=== PATIENT | male | born 1980 | race American Indian/Alaskan Native ===

== ENCOUNTER 2022-05-20 06:54 | Day surgery (SDC) | payer OTHER ==
[~2022-05-20 06:54] MED LIST: LACTATED RINGERS 1,000 ML ONE; ceFAZolin/STERILE WATER 2 GM/20 ML SYRINGE IV NR
[2022-05-20] MEDS ORDERED: LIDOCAINE (2%) 20 MG/1 ML VIAL 20 ML MDV INFILTRATI ONE ×2 (07:20→09:06)
[2022-05-20] MEDS ORDERED: BUPIVACAINE/PF (0.5%) 5 MG/1 ML 30 ML VIAL INFILTRATI ONE ×2 (07:20→09:06)
[2022-05-20] MEDS ORDERED: HYDROmorphone 1 MG/1 ML INJ ONE (07:42)
[2022-05-20] MEDS ORDERED: propofoL 200 MG/20 ML VIAL IV ONE (07:42)
[2022-05-20] MEDS ORDERED: LIDOCAINE MPF (2%) 20 MG/1 ML VIAL 5 ML ONE (07:47)
[2022-05-20] MEDS ORDERED: ROCURONIUM 50 MG/5 ML INJ IV ONE (07:47)
--- NOTE | 2022-05-20 07:53 | Anesthesia Consultation ---
Anesthesia Consult and Med Hx Date of service: 05/20/22 - Airway Anesthetic Teeth Evaluation: Poor (broken tooth #27), Partials (upper front) ROM Head & Neck: Adequate Mental/Hyoid Distance: Adequate Mallampati Class: Class II Intubation Access Assessment: Probably Good - Pre-Operative Health Status ASA Pre-Surgery Classification: ASA2 Proposed Anesthetic Plan: General - Pulmonary Hx Smoking: Yes (1 pack/day, stopped 9 days ago) - Central Nervous System Hx Psychiatric Problems: No - Hematic Hx Anemia: Yes ("slight") - Other Systems Hx Alcohol Use: No Hx Substance Use: Yes (Marijuana occas) Hx Cancer: No
--- NOTE | 2022-05-20 07:53 | Anesthesia Day of Surgery ---
Anesthesia Day of Surgery - Day of Surgery Patient Examined: Yes Patient H&P Reviewed: Yes Patient is NPO: Yes
[2022-05-20] MEDS ORDERED: FAMOTIDINE 20 MG/2 ML INJ IV NR (08:00)
[2022-05-20] MEDS ORDERED: LACTATED RINGERS 1,000 ML IV SCH (08:00)
[2022-05-20] MEDS ORDERED: MIDAZOLAM 2 MG/2 ML INJ IV NR (08:00)
[2022-05-20] MEDS ORDERED: SODIUM CHLORIDE 0.9% IRR 1,500 ML BOTTLE IR ONE (09:06)
[2022-05-20] MEDS ORDERED: ONDANSETRON 4 MG/2 ML INJ ONE (10:41)
[2022-05-20] MEDS ORDERED: GLYCOPYRROLATE 0.4 MG/2 ML INJ ONE (10:41)
[2022-05-20] MEDS ORDERED: NEOSTIGMINE 10MG/10 ML INJ MDV ONE (10:41)
--- NOTE | 2022-05-20 10:58 | Short Stay Summary ---
Short Stay Documentation Date of service: 05/20/22 - History Principal diagnosis: left inguinal hernia H&P: obtained from office - Allergies and Medications Current Medications: Allergies morphine Allergy (Verified 05/14/22 18:07) Hives shellfish derived Allergy (Verified 05/14/22 18:07) Hives Home Medications Medication Instructions Recorded Confirmed Last Taken Type No Known Home Medications [No 05/14/22 05/14/22 Unknown History Reported Home Medications] Active Medications Cefazolin Sodium (Cefazolin/Sterile Water 2 Gm/20 Ml Syringe) 2 gm IV PREOP NR Stop: 05/20/22 23:59 Famotidine (Famotidine 20 Mg/2 Ml Inj) 20 mg IV PREOP NR Stop: 05/20/22 12:00 Lactated Ringer's (Lactated Ringers) 1,000 mls @ 100 mls/hr IV DIRECT [place] Stop: 05/20/22 23:00 Midazolam HCl (Midazolam 2 Mg/2 Ml Inj) 2 mg IV PREOP NR Stop: 05/20/22 23:59 - Brief post op/procedure progress note Date of procedure: 05/20/22 Pre-op diagnosis: left inguinal hernia Post-op diagnosis: same Procedure: robotic assisted left inguinal hernia repair with mesh Anesthesia: GETA, local Findings: Indirect left inguinal hernia with moderate sized redundant sac Surgeon: TOM LOPEZ (Assist: Cm Martin CSA) Estimated blood loss: minimal Pathology: none Condition: stable - Hospital course Hospital course: Pt observed in PACU and discharged to home in stable condition when criteria met - Disposition Condition at discharge: Good Disposition: 01 HOME / SELF CARE / HOMELESS Short Stay Discharge Plan Activity: other (no heavy lifitng x 6 weeks) Diet: regular Wound: open to air Additional Instructions: SEE PRINTED INSTRUCTIONS Prescriptions: Gabapentin 300 mg PO BID 3 Days #6 cap Ibuprofen [Motrin] 800 mg PO Q8HR PRN #30 tablet PRN Reason: Pain, Moderate (4-6) HYDROcodone/APAP 5-325 [Dighton 5/325] 1 each PO Q6HR PRN #15 tablet PRN Reason: Pain , Severe (7-10)
[2022-05-20 15:59] VITALS: BP 122/86
--- NOTE | 2022-05-20 16:11 | Post Anesthesia Evaluation ---
- Post Anesthesia Evaluation Patient Participated: Yes Airway Patent: Yes Stable Respiratory Function: Yes Nausea/Vomiting: No Temp > 96.8F: Yes Pain Manageable: Yes Adequeate Hydration: Yes Anesthesia Complications: No Block Receding Appropriately: Not Applicable Patient on Ventilator: No
--- NOTE | 2022-05-20 17:02 | Operative Report ---
Operative Report Operative Report: Date of procedure: 05/20/22 Pre-op diagnosis: left inguinal hernia Post-op diagnosis: same Procedure: robotic assisted left inguinal hernia repair with mesh Anesthesia: GETA, local Findings: Indirect left inguinal hernia with moderate sized redundant sac Surgeon: TOM LOPEZ (Assist: Cm Martin CSA) Estimated blood loss: minimal Pathology: none Condition: stable Hospital course: Pt observed in PACU and discharged to home in stable condition when criteria met Condition at discharge: Good Disposition: 01 HOME / SELF CARE / HOMELESS HPI and indication: Patient is a 41-year-old male who was referred to the surgery clinic for a bulge in the left groin. He was found to have a left inguinal hernia on physical exam. It was recommended that the hernia be repaired. I discussed all risk, benefits, alternatives to repair with the patient and questions were answered. I explained that if the hernia was found on the right side at the same time, this would be fixed as well. The patient was agreeable. Consent obtained for robotic assisted left inguinal hernia repair with mesh, possible right, possible open. Procedure in detail: Patient was identified in the preoperative area, take back to operating room placed on operative table in supine position. After anesthesia was induced both arms were tucked and all bony prominences padded a ppropriately. A Vora catheter was sterilely placed by the circulating nurse. The abdomen and b/l groins were then prepped and draped in usual sterile fashion and a timeout performed. Local anesthetic was infiltrated to skin at the intended incision sites. A supraumbilical incision was made through which a Veress needle was inserted. Veress needle positioning was confirmed using saline drop test and the abdomen insufflated to 15 mmHg. Once the abdomen was insufflated, the Veress needle was removed and a 5 mm Optiview trocar was placed as incision. The abdomen is inspected there was no underlying injury to any of the abdominal structures. The thin fat overlying the transverse color had some insufflation air beneath it but no injury to colon was seen after meticulous inspection. Patient was placed in Trendelenburg and the pelvis examined. There was a left inguinal hernia and no obvious hernia on the right (prior repair was intact). At this point, an 8 mm right upper quadrant and left upper quadrant robotic trocars were then placed under direct visualization. The 5 mm supraumbilical trocar was removed and replaced with a 8mm robotic trocar under direct visualization. A Ray-Rob was placed into the abdomen. The robot was then docked. A forced bipolar was placed into arm #1 and a monopolar scissor in arm #3. The surgeon was then transferred to the console. First, I created a left sided preperitoneal flap. The peritoneum was scored approximately 5 to 6 cm from the hernia defect. The peritoneum was then incised from the midline to the ASIS. The preperitoneal flap was then developed in an avascular plane. I first defined the medial margin by dissecting to the pubic tubercle. The pubic tubercle was cleared of overlying fatty tissue using blunt dissection. I then created the lateral margin in a similar fashion. Great care was taken to avoid injury to any nerves. There was an indirect inguinal hernia and the hernia sac was gently reduced using blunt dissection and transecting cremasteric fibers with electrocautery. During the dissection, the cord structures were identified and protected. The cord structures and vas deferens were visualized throughout the entire dissection. Once the hernia sac was completely reduced, the peritoneal flap was checked for hemostasis. Any additional cremasteric fibers that were were tenting up the peritoneum were div ided. Hemostasis was carefully ensured. The hernia was repaired using a LEFT large 3D max mesh. The mesh along with suture material was placed into the abdomen by the special events assistant. The mesh was positioned into the preperitoneal flap in the usual fashion. The medial portion of the mesh was sutured to Caleb's ligament using an interrupted 2-0 Vicryl stitch. The lateral aspect of the mesh was sutured to the anterior lateral abdominal wall using a 2-0 Vicryl interrupted stitch. The mesh was seen to lay flat in the pocket with excellent coverage. An 18 F angiocath was inserted through the left lower abdominal wall into the pocket but the special events assistant. The peritoneum was then reapproximated using 3-0 running V-Loc stitch. The entirety of the mesh was covered with peritoneum. The robot was then undocked and the surgeon scrubbed back in. The remainder of the case was performed laparoscopically. All sharp materials along with a Ray-Rob were removed from the abdomen under direct visualization. The abdomen was desufflated and the ports removed. Skin incisions were once again infiltrated with local anesthetic. The skin incisions were approximated with 4-0 Monocryl subcuticular stitches and skin glue. Preperioneal air was evacuated via the angiocath and then this was removed. At the end of the case all sponge, instrument, sharp counts were correct x2. Patient was awoken from anesthesia and Vora catheter removed. Both testicles were palpated in the scrotum in anatomic position. The patient was taken to PACU in stable condition.
== END 2022-05-20 13:20 | disposition home or self-care (01) ==
LOC: OR 06:54
PROVIDERS: ATTEND Surgery
DX: K40.90 Unilateral inguinal hernia, without obstruction or gangrene, not specified as recurrent (principal); F17.210 Nicotine dependence, cigarettes, uncomplicated; D17.79 Benign lipomatous neoplasm of other sites; G43.909 Migraine, unspecified, not intractable, without status migrainosus; D64.9 Anemia, unspecified; Z96.651 Presence of right artificial knee joint; Z79.899 Other long term (current) drug therapy; Z88.5 Allergy status to narcotic agent; Z91.013 Allergy to seafood
CPT/HCPCS: 49650; C1781; J0690; J1170; J1815; J2250; J2405; J2704; J2710; J3490; J7120; S2900